=== PATIENT | male | born 1980 | race African-American/Black ===

== ENCOUNTER 2023-09-12 03:15 | Emergency (ER) | payer SELFPAY ==
[~2023-09-12] VITALS: Ht 172.7 cm; Wt 81.8 kg
[2023-09-12 03:32] VITALS: TEMP 98.7
[2023-09-12 03:45] LABS: BASO % 0.5 % (0.0-2.0); EOS # 0.1 K/mm3 (0.0-0.7); EOS % 1.5 % (0.0-4.0); GRAN # 4.7 K/mm3 (1.4-6.5); GRAN % 58.8 % (42.2-75.2); HEMATOCRIT 42.4 % (42.0-52.0); HEMOGLOBIN 14.5 g/dl (13.5-18.0); LYMPH # 2.6 K/mm3 (1.2-3.4); LYMPH % 31.8 % (20.0-51.0); MEAN CELL VOLUME 82 fl (80.0-100.0); MEAN CORPUSCULAR HEMOGLOBIN 28 pg (27-31); MEAN CORPUSCULAR HGB CONC 34 g/dl (33.0-37.0); MEAN PLATELET VOLUME 8.9 fl (7.4-10.4); MONO # 0.6 K/mm3 (0.1-0.6); MONO % 7.2 % (1.7-9.3); PLATELET COUNT 333 K/mm3 (130-400); RED BLOOD COUNT 5.19 M/mm3 (4.20-5.60)
[2023-09-12 04:20] LABS: ALANINE AMINOTRANSFERASE 27 U/L (0-55); ALBUMIN 3.7 gm/dL (3.5-5.0); ALKALINE PHOSPHATASE 83 U/L (40-150); ANION GAP 11 mmol/L (7-16); AST,SGOT 25 U/L (5-34); BILIRUBIN,TOTAL 0.4 mg/dL (0.2-1.2); BLOOD UREA NITROGEN 17 mg/dL (9-21); CALCIUM 9.3 mg/dL (8.4-10.2); CARBON DIOXIDE 25 mmol/L (22-29); CHLORIDE 105 mmol/L (98-107); CREATININE, serum 0.99 mg/dL (0.72-1.25); GLUCOSE 123 mg/dL (70-99); SODIUM 141 mmol/L (136-145); TOTAL PROTEIN 7.4 gm/dL (6.2-8.1)
[2023-09-12 04:23] LABS: ALCOHOL(ethanol),MEDICAL < 10 mg/dL (0-10)
[2023-09-12 04:29] LABS: TROPONIN-I < 0.010 ng/mL (0.00-0.033)
[2023-09-12 08:13] VITALS: BP 139/80; PULSE 96
== END 2023-09-12 09:00 | disposition home or self-care (01) ==
LOC: COL.ER 03:15
PROVIDERS: Emergency Medicine
DX: R07.89 Other chest pain (principal); Z59.00 Homelessness unspecified

== ENCOUNTER 2024-02-23 00:17 | Emergency (ER) | payer SELFPAY ==
[~2024-02-23] VITALS: Ht 172.7 cm; Wt 86.4 kg
[2024-02-23 00:19] VITALS: TEMP 98
[2024-02-23 00:39] VITALS: BP 127/77; PULSE 77
== END 2024-02-23 00:40 | disposition home or self-care (01) ==
LOC: COL.ER 00:17
DX: R69 Illness, unspecified (principal); F17.200 Nicotine dependence, unspecified, uncomplicated; Z59.00 Homelessness unspecified